=== PATIENT | male | born 1955 | race Caucasian/White ===

== ENCOUNTER 2024-04-02 19:24 | Emergency (ER) | payer OTHER ==
[2024-04-02] MEDS ORDERED: LIDOCAINE 2% W/EPI 1:200,000 MPF 20 ML VIAL IM ONE (21:04)
[2024-04-02 21:54] LABS: Absolute Basophils 0.1 K/uL (0-0.5); Absolute Eosinophils 0.1 K/uL (0-0.5); Absolute Lymphocytes (CBC) 1.9 K/uL (0.7-4.9); Absolute Monocytes 1.1 K/uL (0.1-1.3); Absolute Neutrophil 9.1 K/uL (1.8-8.0); Basophils % 0.5 % (0-1.3); Eosinophils % 0.9 % (0-4.4); Hematocrit 41.2 % (39.6-49.0); Hemoglobin 13.6 g/dL (13.6-17.9); Lymphocytes % 15.8 % (15.3-44.8); MCH 31.1 pg (27.0-35.0); MCV 94.4 fL (80-100); Monocytes % 9.1 % (3.3-12.3); Neutrophils % 73.7 % (41.7-73.7); PT Prothrombin Time 12.2 SECONDS (9.4-12.5); Platelets 183 thou/uL (152-406); Protime INR 1.09; RBC Red Blood Cell Count 4.37 M/uL (4.33-5.43); Red Cell Distribution Width 13.5 % (12.1-15.2)
[2024-04-02] MEDS ORDERED: ONDANSETRON 4 MG/2 ML VIAL ONE (22:03)
[2024-04-02] MEDS ORDERED: MORPHINE 4 MG/ML SYR ONE (22:04)
[2024-04-02 22:06] LABS: Albumin 3.6 g/dL (3.4-5.0); Albumin/Globulin Ratio 0.9 (1.1-1.8); Anion Gap 7.6 mEq/L (5.0-15.0); Bilirubin Total 0.6 mg/dL (0.2-1.0); Globulin 3.9 g/dL (2.3-3.5); Potassium 3.6 mEq/L (3.5-5.1); Protein, Total 7.5 g/dL (6.4-8.2); Uric Acid 6.1 mg/dL (3.5-7.2)
--- NOTE | 2024-04-02 22:16 | RAD REPORT ---
EXAMINATION: US LOWER EXTREMITY VENOUS DOPPLER CLINICAL INDICATION: Pain, swelling TECHNIQUE: Complete bilateral duplex sonography of the LEFT lower extremity veins was performed. The examination included compression for vein patency, color Doppler imaging and flow augmentation in response to distal compression of the distal external iliac, common femoral, femoral, popliteal, tibi al, and great and small saphenous veins. COMPARISON: No prior exam. FINDINGS: Duplex sonography testing of the veins of the LEFT lower extremity was performed. Color flow imaging shows all veins to be compressible with [id number] color filling. Pulsatile and phasic flow is present within all lower extremity deep and superficial veins examined. Incidentally noted lobulated thin-walled anechoic cyst in the left popliteal fossa measuring up to 4. 2 cm. IMPRESSION: No evidence of deep venous thrombosis. Incidentally noted left popliteal fossa cyst, sug gesting a Alvarado's cyst.
--- NOTE | 2024-04-02 22:20 | RAD REPORT ---
EXAM: Knee Left 3 View HISTORY: [facility] MAIN Pain;Swelling Bed Name: 11 COMPARISON: None TECHNIQUE: 3 views of the left knee were obtained. FINDINGS: Large knee effusion is seen. There is no evidence of acute fracture or dislocation. Modera te to advanced degenerative changes with subchondral sclerosis along the medial weightbearing compartment. No soft tissue swelling is present. IMPRESSION: No evidence of acute osseous abnormality. Degenerative changes and a large suprapatellar effusion as above.
[2024-04-02 22:35] LABS: Appearance VERY TURBID (CLEAR); Body Fluid Source SYNOVIAL; Color of Supernate Not Xanthochromic (Not Xantho); Color of fluid Yellow (COLORLESS); Tube # SINGLE
[2024-04-02 22:36] LABS: Body Fluid WBC 22097 /mm^3
[2024-04-02 23:12] LABS: Body Fluid Lymphocytes 3 %; Fluid Total Cells Count 100
--- NOTE | 2024-04-02 23:38 | EDPHYS ---
Physician Documentation [facility] Name: Tomi Alfaro Age: 68 yrs Sex: Male : 1955 Arrival Date: 04/02/2024 Time: 19:24 Bed 11 Private MD: ED Physician Jose Francisco Tellez HPI: 04/02 20:33 This 68 yrs old Male presents to ER via Wheelchair with complaints of Leg Pain, Leg sp3 Swelling. 20:33 68-year-old male with history of diabetes, hypertension now presents to the ED with sp3 left knee swelling and pain for approximately 1 week. Patient states he has had similar episodes in the past where at the [facility] they gave him antibiotics and anti-inflammatories which made it go away. He denies any break in the skin, infectious process, trauma, prior gout, bursitis or any other prior history regarding the left knee. Patient denies any distal neurovascular pain.. Historical: - Allergies: 19:37 No Known Allergies; me1 - PMHx: 19:37 diabetes mellitus; Hypertensive disorder; me1 - PSHx: 19:37 Right knee replacement; me1 - Immunization history:: Adult Immunizations up to date. - Infectious Disease History:: Denies. - Social history:: Smoking status: Patient reports the use of cigarette tobacco products, smokes one pack cigarettes per day. ROS: 20:35 Constitutional: Negative for fever, chills, and weight loss, Eyes: Negative for injury, sp3 pain, redness, and discharge, ENT: Negative for injury, pain, and discharge, Neck: Negative for injury, pain, and swelling, Cardiovascular: Negative for chest pain, palpitations, and edema, Respiratory: Negative for shortness of breath, cough, wheezing, and pleuritic chest pain, Abdomen/GI: Negative for abdominal pain, nausea, vomiting, diarrhea, and constipation, Back: Negative for injury and pain, Skin: Negative for injury, rash, and discoloration, Neuro: Negative for headache, weakness, numbness, tingling, and seizure, Psych: Negative for depression, anxiety, suicide ideation, homicidal ideation, and hallucinations, Allergy/Immunology: Negative for hives, rash, and allergies, Endocrine: Negative for neck swelling, polydipsia, polyuria, polyphagia, and marked weight changes, Hematologic/Lymphatic: Negative for swollen nodes, abnormal bleeding, and unusual bruising, 20:35 All other systems are negative, Exam: 20:35 Constitutional: This is a well developed, well nourished patient who is awake, alert, sp3 and in no acute distress. Head/Face: Normocephalic, atraumatic. Eyes: Pupils equal round and reactive to light, extra-ocular motions intact. Lids and lashes normal. Conjunctiva and sclera are non-icteric and not injected. Cornea within normal limits. Periorbital areas with no swelling, redness, or edema. ENT: Nares patent. No nasal discharge, no septal abnormalities noted. External auditory canals are clear. Oropharynx with no redness, swelling, or masses, exudates, or evidence of obstruction, uvula midline. Mucous membranes moist. Neck: Trachea midline, no thyromegaly or masses palpated, and no cervical lymphadenopathy. Supple, full range of motion without nuchal rigidity, or vertebral point tenderness. No Meningismus. Chest/axilla: Normal chest wall appearance and motion. Nontender with no deformity. No lesions are appreciated. Cardiovascular: Regular rate and rhythm with a normal S1 and S2. No gallops, murmurs, or rubs. Normal PMI, no JVD. No pulse deficits. Respiratory: Lungs have equal breath sounds bilaterally, clear to auscultation and percussion. No rales, rhonchi or wheezes noted. No increased work of breathing, no retractions or nasal flaring. Abdomen/GI: Soft, non-tender, with normal bowel sounds. No distension or tympany. No guarding or rebound. No evidence of tenderness throughout. Back: No spinal tenderness. No costovertebral tenderness. Full range of motion. Skin: Warm, dry with normal turgor. Normal color with no rashes, no lesions, and no evidence of cellulitis. Neuro: Awake and alert, GCS 15, oriented to person, place, time, and situation. Cranial nerves II-XII grossly intact. Motor strength 5/5 in all extremities. Sensory grossly intact. Cerebellar exam normal. Normal gait. Psych: Awake, alert, with orientation to person, place and time. Behavior, mood, and affect are within normal limits. 20:35 Musculoskeletal/extremity: Left knee with significant effusion noted. No surface erythema, breaks in the skin or other rash. No calf pain. Distal neurovascular exam is normal. Proximal neurovascular exam is normal. No signs of trauma, crepitus, drawer laxity, or any other significant physical exam findings noted.. Vital Signs: 19:35 BP 148 / 93; Pulse 108; Resp 18; Temp 98.4; Pulse Ox 96% ; Weight 81.65 kg; Height 5 me1 ft. 10 in. ; Pain 10/10; 21:19 BP 165 / 98; Pulse 101; Pulse Ox 96% on R/A; MAP 116 mmHg; Pain 10/10; tm6 04/03 00:09 BP 132 / 63; Pulse 96; Resp 16; Pulse Ox 94% ; vc1 04/02 19:35 Body Mass Index 25.83 (81.65 kg, 177.8 cm) nm1 04/02 19:35 Pain Scale: Adult me1 21:19 Pain Scale: Adult tm6 Procedures: 04/02 22:08 Joint Treatment: Aspiration of left knee using 18 gauge needle, Lidocaine, Removed 100 sp3 ml's of cloudy fluid, yellow fluid, Dressed with 4x4s, Patient tolerated well. of left knee . MDM: 19:53 Patient medically screened. kb 20:36 Data reviewed: vital signs, nurses notes, lab test result(s), radiologic studies. ED sp3 course: 68-year-old male with left knee swelling and pain. Differential diagnosis includes inflammatory effusion, and factious effusion, unknown trauma and to a lesser degree DVT or other similar process. Workup will include knee x-ray, ultrasound, laboratory values and we will also attempt to perform arthrocentesis to analyze synovial fluid. Disposition pending workup and patient course.. 23:35 ED course: Joint fluid demonstrates WBC of 20,000 and no crystals. This likely sp3 represents a type II inflammatory arthritis and clinically is consistent with his presentation. Vital signs are normal patient feels much better after the aspiration. I do not believe patient has a septic joint. We will administer Solu-Medrol IV here in the ED and send patient home on NSAID with follow-up to [facility]ology. Will discharge with all blood work and synovial fluid analysis as well.. 04/02 20:17 Order name: Blood Culture Adult (2) sp3 04/02 20:17 Order name: CBC with Diff; Complete Time: 22:10 sp3 04/02 20:17 Order name: CMP; Complete Time: 22:10 04/02 20:17 Order name: Lactate w/ 2H reflex if indic.; Complete Time: 22:10 04/02 20:17 Order name: Protime (+inr); Complete Time: 22:10 04/02 20:17 Order name: Uric Acid; Complete Time: 22:10 04/02 21:51 Order name: Fluid Cell Count,Body; Complete Time: 23:16 04/02 21:51 Order name: Fluid Crystals; Complete Time: 23:23 04/02 21:51 Order name: Body Fluid Culture 04/02 20:19 Order name: Knee Left 3 View XRAY; Complete Time: 22:24 04/02 20:19 Order name: US Extremity Venous Unilateral Ltd; Complete Time: 22:24 04/02 20:17 Order name: IV Saline Lock - Large Bore; Complete Time: 22:02 04/02 20:17 Order name: Labs collected and sent; Complete Time: 22:02 04/02 20:17 Order name: Vital Signs; Complete Time: 21:20 04/02 20:17 Order name: Misc. Order: Large bore needle, multiple large syringes, betadine, sp3 lidocaine with epi; Complete Time: 21:54 Administered Medications: 21:54 Drug: Lidocaine-Epinephrine Infiltration -2 % (1:100,000) 10 ml Infiltration once; to tm6 bedside {Note: administered by MD.} Route: Infiltration; 22:08 Follow up: Response: No adverse reaction tm6 22:08 Drug: morphine IVP or IV 4 mg IVP once over 4 mins Route: IVP; Infused Over: 4 mins; tm6 Site: right hand; 23:58 Follow up: Response: No adverse reaction; Marked relief of symptoms vc1 22:08 Drug: Ondansetron IVP 4 mg IVP once; over 2 minutes Route: IVP; Site: right hand; tm6 23:59 Follow up: Response: No adverse reaction; Nausea is decreased vc1 23:58 Drug: MethylPrednisoLONE IVP 125 mg IVP once Route: IVP; Site: right hand; vc1 23:59 Follow up: Response: Medication administered at discharge. 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 sp3 Followup: sp3 - With: Private Physician - When: Upon discharge from the Emergency Department - Reason: Continuance of care Discharge Instructions: - Discharge Summary Sheet sp3 - Knee Effusion sp3 Forms: - Medication Reconciliation Form sp3 - Antibiotic Education sp3 - Prescription Opioid Use sp3 - Patient Portal Instructions sp3 - Leadership Thank You Letter sp3 - Work release form vc1 Prescriptions: - Diclofenac Sodium 75 mg Oral Tablet Sustained Release - take 1 tablet ORAL route 2 times per day; 30 tablet; Refills: 0, Product sp3 Selection Permitted Signatures: Dispatcher [employer] EDMS Anayeli Meza, SERVICE ENGINE REPAIRER-C SERVICE ENGINE REPAIRER-Jose Francisco Hutchins MD MD sp3 Gaby Costello RN RN vc1 Cheri Valdes RN RN me1 Collette Cedeno RN RN tm6 Corrections: (The following items were deleted from the chart) 20:17 20:17 BLOOD CULTURE*+BA.LAB.BRZ ordered. EDMS EDMS 20:17 20:17 CBC+H.LAB.BRZ ordered. EDMS EDMS 20:17 20:17 COMPREHENSIVE METABOLIC PANEL+C.LAB.BRZ ordered. EDMS EDMS 20:17 20:17 LACTATE+C.LAB.BRZ ordered. EDMS EDMS 20:17 20:17 PROTIME (+INR)+COAG.LAB.BRZ ordered. EDMS EDMS 20:17 20:17 URIC ACID+C.LAB.BRZ ordered. EDMS EDMS 21:51 21:51 FLUID CELL COUNT,BODY+H.LAB.BRZ ordered. EDMS EDMS 21:51 21:51 FLUID CRYSTALS+U.LAB.BRZ ordered. EDMS EDMS 21:51 21:51 FLUID SOURCE+H.LAB.BRZ ordered. EDMS EDMS 21:51 21:51 Body Fluid Culture+BA.LAB.BRZ ordered. EDMS EDMS
--- NOTE | 2024-04-02 23:38 | ER ---
Nurse's Notes [facility] Name: Tomi Alfaro Age: 68 yrs Sex: Male : 1955 Arrival Date: 04/02/2024 Time: 19:24 Bed 11 Private MD: Diagnosis: Type II inflammatory arthritis of the left knee Presentation: 04/02 19:35 Chief complaint: Patient states: c/o left knee pain and swelling that started me1 yesterday. Coronavirus screen: Vaccine status: Patient reports receiving the 2nd dose of the covid vaccine. Ebola Screen: No symptoms or risks identified at this time. Initial Sepsis Screen: Does the patient meet any 2 criteria? No. Patient's initial sepsis screen is negative. Does the patient have a suspected source of infection?. Risk Assessment: Do you want to hurt yourself or someone else? Patient reports no desire to harm self or others. Onset of symptoms was April 01, 2024. 19:35 Method Of Arrival: Wheelchair me1 19:35 Acuity: TALI 3 me1 Historical: - Allergies: 19:37 No Known Allergies; me1 - PMHx: 19:37 diabetes mellitus; Hypertensive disorder; me1 - PSHx: 19:37 Right knee replacement; me1 - Immunization history:: Adult Immunizations up to date. - Infectious Disease History:: Denies. - Social history:: Smoking status: Patient reports the use of cigarette tobacco products, smokes one pack cigarettes per day. Screenin:57 [facility] ED Fall Risk Assessment (Adult) History of falling in the last 3 months, tm6 including since admission No falls in past 3 months (0 pts) Confusion or Disorientation No (0 pts) Intoxicated or Sedated No (0 pts) Impaired Gait Yes (1 pt) Mobility Assist Device Used Yes (1 pt) Altered Elimination No (0 pt) Score/Fall Risk Level 0 - 2 = Low Risk Oriented to surroundings, Maintained a safe environment, Educated pt \T\ family on fall prevention, incl call for assistance when getting out of bed. Abuse screen: Denies threats or abuse. Denies injuries from another. Nutritional screening: No deficits noted. Tuberculosis screening: No symptoms or risk factors identified. Assessment: 19:57 General: Appears in no apparent distress. Behavior is calm, cooperative. Pain: tm6 Complains of pain in left leg Pain does not radiate. Pain currently is 10 out of 10 on a pain scale. Quality of pain is described as throbbing. Neuro: Level of Consciousness is awake, alert, obeys commands, Oriented to person, place, time, situation. Cardiovascular: Patient's skin is warm and dry. Respiratory: Airway is patent Respiratory effort is even, unlabored, Respiratory pattern is regular, symmetrical. GI: No signs and/or symptoms were reported involving the gastrointestinal system. Abdomen is flat, non-distended. : No signs and/or symptoms were reported regarding the genitourinary system. EENT: No signs and/or symptoms were reported regarding the EENT system. Derm: Skin is red, left leg. Musculoskeletal: Reports pain in left leg Pain is 10 out of 10 on a pain scale. 04/03 00:10 Reassessment: Patient appears in no apparent distress at this time. No changes from vc1 previously documented assessment. Patient and/or family updated on plan of care and expected duration. Pain level reassessed. Patient is alert, oriented x 3, equal unlabored respirations, skin warm/dry/pink. Vital Signs: 04/02 19:35 BP 148 / 93; Pulse 108; Resp 18; Temp 98.4; Pulse Ox 96% ; Weight 81.65 kg; Height 5 me1 ft. 10 in. ; Pain 10/10; 21:19 BP 165 / 98; Pulse 101; Pulse Ox 96% on R/A; MAP 116 mmHg; Pain 10/10; tm6 04/03 00:09 BP 132 / 63; Pulse 96; Resp 16; Pulse Ox 94% ; vc1 04/02 19:35 Body Mass Index 25.83 (81.65 kg, 177.8 cm) me1 04/02 19:35 Pain Scale: Adult me1 21:19 Pain Scale: Adult tm6 ED Course: 04/02 19:29 Patient arrived in ED. gm2 19:37 Triage completed. me1 19:37 Arm band placed on Patient placed in waiting room. me1 19:53 Anayeli Meza FNP-C is [facility]. kb 19:53 Fran Woods MD is Attending Physician. kb 19:54 Collette Cedeno RN is Primary Nurse. tm6 19:57 Patient has correct armband on for positive identification. Bed in low position. Call tm6 light in reach. Side rails up X2. Provided Education on: use of call layton. Client placed on continuous cardiac and pulse oximetry monitoring. NIBP monitoring applied. Pulse ox on. NIBP on. Door closed. Noise minimized. Warm blanket given. Pillow given. 20:08 Attending Physician role handed off by Fran Woods MD sp3 20:08 Jose Francisco Tellez MD is Attending Physician. sp3 20:42 US Extremity Venous Unilateral Ltd In Process Unspecified. EDMS 21:00 Missed attempt(s): 22 gauge in right antecubital area. Bleeding controlled, band aid kmf applied, catheter tip intact. 21:12 Knee Left 3 View XRAY In Process Unspecified. EDMS 21:15 First set of blood cultures drawn by me. kmf 21:19 Missed attempt(s): 22 gauge in right antecubital area. Bleeding controlled, band aid tm6 applied, catheter tip intact. 21:36 Second set of blood cultures drawn by me. kmf 21:45 knee aspiration. vc1 21:51 Missed attempt(s): 22 gauge in left forearm. Bleeding controlled, band aid applied, kmf catheter tip intact. 21:51 Inserted saline lock: 22 gauge in right hand, using aseptic technique. Blood collected. kmf Flushed with 10 mL NS. 21:52 Blood Culture Adult (2) Sent. f 21:52 CBC with Diff Sent. kmf 21:52 CMP Sent. kmf 21:52 Lactate w/ 2H reflex if indic. Sent. f 21:52 Protime (+inr) Sent. f 21:52 Initial lab(s) drawn, by il, sent to lab. f 22:02 Fluid Cell Count,Body Sent. tm6 22:02 Fluid Crystals Sent. tm6 22:02 Body Fluid Culture Sent. tm6 04/03 00:10 IV discontinued, intact, bleeding controlled, No redness/swelling at site. Pressure vc1 dressing applied. Administered Medications: 04/02 21:54 Drug: Lidocaine-Epinephrine Infiltration -2 % (1:100,000) 10 ml Infiltration once; to tm6 bedside {Note: administered by .} Route: Infiltration; 22:08 Follow up: Response: No adverse reaction tm6 22:08 Drug: morphine IVP or IV 4 mg IVP once over 4 mins Route: IVP; Infused Over: 4 mins; tm6 Site: right hand; 23:58 Follow up: Response: No adverse reaction; Marked relief of symptoms vc1 22:08 Drug: Ondansetron IVP 4 mg IVP once; over 2 minutes Route: IVP; Site: right hand; tm6 23:59 Follow up: Response: No adverse reaction; Nausea is decreased vc1 23:58 Drug: MethylPrednisoLONE IVP 125 mg IVP once Route: IVP; Site: right hand; vc1 23:59 Follow up: Response: Medication administered at discharge. vc1 Medication: 19:57 VIS not applicable for this client. tm6 Outcome: 23:37 Discharge ordered by . sp3 04/03 00:10 Discharged to home ambulatory, vc1 Condition: good Discharge instructions given to patient, Instructed on discharge instructions, follow up and referral plans. medication usage, Demonstrated understanding of instructions, follow-up care, medications, Prescriptions given X 1, 00:11 Patient left the ED. vc1 Addendum: 04/10/2024 13:22 Addendum: Culture Results: body fluid Patient was not prescribed antibiotics at l l1 discharge. Report given to [facility] for further evaluation and then to [facility] for follow up with patient. Prescription called-in to pharmacy of choice. [facility] in [place]. Bactrim DS BID x 7 days. Signatures: Dispatcher [employer] Anayeli Ellis, OSD CLERK-C OSD CLERK-Kavtia Dubose, RN RN ll1 Jose Francisco Tellez MD MD sp3 Gaby Costello RN RN vc1 Cheri Valdes RN RN il1 Gabrielle Blackmon [facility] Lucero Hernandez [facility] Collette Cedeno RN RN tm6
[2024-04-02] MEDS ORDERED: METHYLPREDNISOLONE 125 MG INJ ONE (23:51)
[2024-04-03 00:48] VITALS: TEMP 98.4
[2024-04-03 00:51] VITALS: BP 132/63; O2SAT 94
== END 2024-04-03 00:11 | disposition home or self-care (01) ==
LOC: ER 19:24
DX: M06.862 Other specified rheumatoid arthritis, left knee (principal); E11.9 Type 2 diabetes mellitus without complications; I10 Essential (primary) hypertension; Z96.651 Presence of right artificial knee joint; F17.210 Nicotine dependence, cigarettes, uncomplicated
CPT/HCPCS: 20610; 87040 ×2; 87070; 85025; 36415; 89050; 85610; 84550; 83605; 80053; 89060; 73562; 93971; 96375; 96374; 99285; J2919; J2405; 87077; 87186